=== PATIENT | male | born 1950 | race Caucasian/White ===

== ENCOUNTER 2019-11-12 06:02 | Inpatient (IN) ==
[2019-11-12] MEDS ORDERED: CeFAZolin Syr 2,000MG/20 ML 2,000 MG/20 ML SYRINGE IVPB ONE (06:25)
[2019-11-12] MEDS ORDERED: NiCARdipine 2.5 MG/10 ML Syringe IVPB ONE (06:56)
[2019-11-12] MEDS ORDERED: *HR* Midazolam HCl 5 MG/5 ML VIAL IVP ONE (06:59)
[2019-11-12] MEDS ORDERED: *HR* Propofol 200 MG/20 ML VIAL IVP ONE (06:59)
[2019-11-12] MEDS ORDERED: *HR* FentaNYL (PF) 1,000 MCG/20 ML VIAL ONE (06:59)
[2019-11-12] MEDS ORDERED: Famotidine 20 MG/2 ML VIAL ONE (07:01)
[2019-11-12] MEDS ORDERED: *HR* Rocuronium Bromide 50 MG/5 ML VIAL ONE ×3 (07:01→11:32)
[2019-11-12] MEDS ORDERED: *HR* PHENYLEPHRINE 1,000 MCG/10 ML SYRINGE IVP ONE (07:01)
[2019-11-12] MEDS ORDERED: Dexamethasone 4 MG/ML VIAL ONE (07:01)
[2019-11-12] MEDS ORDERED: Tranexamic Acid 1,000 MG/10 ML VIAL ONE (07:01)
[2019-11-12] MEDS ORDERED: Lidocaine 2% Syringe 100 MG/5 ML ONE (07:01)
[2019-11-12] MEDS: Aspirin 81 MG TAB.CHEW PO SCH ×2 (07:13→10:45)
[2019-11-12] MEDS ORDERED: *HR* Magnesium Sulfate 1 GM/2 ML VIAL ONE (07:15)
[2019-11-12] MEDS ORDERED: Heparin 15,000 UNIT in 0.9 % Sodium Chloride 500 ML IV ONE (07:45)
[2019-11-12] MEDS ORDERED: Dextrose 50 % in Water (Vial) 30 ML, Sodium Bicarbonate 20 MEQ, Lidocaine 1% 5 ML, Insu... TH ONE ×3 (07:45)
[2019-11-12] MEDS ORDERED: Dextrose 50 % in Water (Vial) 30 ML, Sodium Bicarbonate 20 MEQ, Potassium Chloride 15 M... TH ONE (07:45)
[2019-11-12] MEDS ORDERED: Norepinephrine 4 MG in 0.9 % Sodium Chloride 250 ML IVC PRN (07:45)
[2019-11-12] MEDS ORDERED: Insulin Human Regular 100 UNIT in 0.9 % Sodium Chloride 100 ML IV PRN (07:45)
[2019-11-12 08:17] LABS: ABG Base Excess -1 mEq/L (-2 to 3); ABG Chloride 110 mEq/L (98-107); ABG Glucose 117 mg/dL (60-95); ABG HCO3 26 mEq/L (21-27); ABG Ionized Calcium 1.09 mmol/L (1.15-1.35); ABG Oxygen Saturation 100 % (95-98); ABG PCO2 53 mmHg (35-45); ABG PO2 448 mmHg (85-104); ABG TCO2 28 mEq/L (20-26)
[2019-11-12] MEDS ORDERED: Chlorhexidine Rinse 15 ML MOUTHWASH MM SCH (09:00)
[2019-11-12 09:54] LABS: ABG Base Excess -2 mEq/L (-2 to 3); ABG Chloride 109 mEq/L (98-107); ABG Glucose 113 mg/dL (60-95); ABG HCO3 23 mEq/L (21-27); ABG Ionized Calcium 1.11 mmol/L (1.15-1.35); ABG Oxygen Saturation 100 % (95-98); ABG PCO2 40 mmHg (35-45); ABG PH 7.37 pH Units (7.32-7.45); ABG PO2 279 mmHg (85-104); ABG TCO2 24 mEq/L (20-26)
[2019-11-12 10:20] LABS: ABG Base Excess -1 mEq/L (-2 to 3); ABG Chloride 105 mEq/L (98-107); ABG Glucose 174 mg/dL (60-95); ABG HCO3 24 mEq/L (21-27); ABG Ionized Calcium 1.05 mmol/L (1.15-1.35); ABG Oxygen Saturation 100 % (95-98); ABG PCO2 35 mmHg (35-45); ABG PH 7.44 pH Units (7.32-7.45); ABG PO2 485 mmHg (85-104); ABG TCO2 25 mEq/L (20-26)
[2019-11-12] MEDS ORDERED: Calcium Gluconate 1,000 MG/10 ML VIAL ONE (10:22)
[2019-11-12] MEDS ORDERED: Protamine Sulfate 250 MG/25 ML VIAL IVP ONE (10:22)
[2019-11-12 10:42] LABS: ABG Base Excess 0 mEq/L (-2 to 3); ABG Chloride 105 mEq/L (98-107); ABG Glucose 135 mg/dL (60-95); ABG HCO3 25 mEq/L (21-27); ABG Ionized Calcium 1.09 mmol/L (1.15-1.35); ABG Oxygen Saturation 100 % (95-98); ABG PCO2 39 mmHg (35-45); ABG PH 7.41 pH Units (7.32-7.45); ABG PO2 332 mmHg (85-104); ABG TCO2 26 mEq/L (20-26)
[2019-11-12] MEDS ORDERED: Ondansetron 4 MG/2 ML VIAL IVP PRN (11:20)
[2019-11-12] MEDS ORDERED: Potassium Chloride 40 MEQ/200 ML BAG IVPB PRN (11:20)
[2019-11-12] MEDS ORDERED: *HR* Dextrose 50 % in Water (Vial) 50 ML VIAL IVP PRN (11:20)
[2019-11-12] MEDS ORDERED: Acetaminophen 650 MG RECTAL SUPP RC PRN (11:20)
[2019-11-12] MEDS ORDERED: Acetaminophen 325 MG TABLET PO PRN (11:20)
[2019-11-12] MEDS ORDERED: Albumin Human 5% 12.5 GM/250 ML IV.SOLN IVPB PRN (11:20)
[2019-11-12] MEDS: niCARdipine 20 MG/200 ML MLS IVC SCH ×4 (11:20→22:04)
[2019-11-12] MEDS ORDERED: Naloxone 0.4 MG/ML INJ IVP PRN (11:20)
[2019-11-12] MEDS ORDERED: Calcium Gluconate 1gm/50mL 1 GM/50 ML BAG IVPB PRN (11:20)
[2019-11-12] MEDS ORDERED: Insulin Regular, Human 100 UNIT/ML IV PRN (11:20)
[2019-11-12] MEDS: *HR* FentaNYL (PF) 100 MCG/2 ML VIAL IVP PRN ×2 (11:55→17:02)
[2019-11-12 12:24] LABS: ABG Base Excess -1 mEq/L (-2 to 3); ABG HCO3 25 mEq/L (21-27); ABG Oxygen Saturation 99 % (95-98); ABG PCO2 47 mmHg (35-45); ABG PH 7.34 pH Units (7.32-7.45); ABG PO2 152 mmHg (85-104); ABG TCO2 27 mEq/L (20-26); Blood Gas Modality AF; Blood Gas VT 500 cc
[2019-11-12 12:32] LABS: Red Cell Distribution Width 13.2 % (11.5-14.5)
[2019-11-12 12:34] LABS: Basophils # 0.1 K/mcL (0.0-0.2); Basophils % 0.4 %; Eosinophils # 0.1 K/mcL (0.0-0.6); Hematocrit 38.4 % (37.5-50.1); Hemoglobin 12.7 g/dL (12.9-16.9); Immature Granulocytes % 0.6 % (0-4); Immature Platelets 6.7 % (1.1-6.1); Lymphocytes # 1.2 K/mcL (0.6-4.6); Lymphocytes % 8.6 %; Mean Corpuscular HGB Conc 33.1 g/dL (31.6-35.5); Mean Corpuscular Hemoglobin 31.1 pg (28.0-33.3); Mean Corpuscular Volume 94.1 fL (83.0-100.0); Mean Platelet Volume 10.4 fL (9.4-12.4); Monocytes # 1.1 K/mcL (0.0-1.3); Monocytes % 7.9 %; Neutrophils # 11.3 K/mcL (1.6-8.9); Red Blood Count 4.08 M/mcL (4.19-5.50); Segmented Neutrophils % 81.5 %
[2019-11-12 12:40] LABS: INR 1.1
[2019-11-12 12:42] LABS: Activated Partial Thrombo Time 29.8 Seconds (26.0-36.0)
[2019-11-12 12:47] LABS: BUN/Creatinine Ratio 15 (6-26); Blood Urea Nitrogen 12 mg/dL (8-23); Carbon Dioxide 24 mEq/L (23-29); Chloride 111 mEq/L (98-107); Glucose 130 mg/dL (70-105); Magnesium 2.7 mg/dL (1.6-2.6); Osmolality,Calculated 292 (280-300); Potassium 4.1 mEq/L (3.5-5.1); Sodium 140 mEq/L (136-145); eGFR For African Americans > 60 (> 60); eGFR For Non-African Americans > 60 (> 60)
[2019-11-12] MEDS: Insulin Human Regular 100 UNIT in 0.9 % Sodium Chloride 100 ML IVC SCH ×2 (13:15→13:28)
[2019-11-12] MEDS: 0.9 % Sodium Chloride w KCl 20 MEQ/1,000 ML MLS IVC SCH (13:15)
[2019-11-12] MEDS: Norepinephrine 4 MG/254 ML IV.SOLN IVC SCH (13:15)
[2019-11-12] MEDS: Metoclopramide 10 MG/2 ML VIAL IVP SCH ×2 (13:16→17:03)
[2019-11-12] MEDS: Pantoprazole 40 MG VIAL IVP SCH (13:19)
[2019-11-12 13:33] LABS: Platelet Count 78 K/mcL (140-400)
[2019-11-12 13:35] LABS: White Blood Count 13.9 K/mcL (4.3-11.1)
[2019-11-12] MEDS: *HR* OxyCODONE/APAP 5/325 TABLET PO PRN ×2 (13:42→19:06)
[2019-11-12 14:59] LABS: ABG Base Excess 0 mEq/L (-2 to 3); ABG HCO3 25 mEq/L (21-27); ABG Oxygen Saturation 94 % (95-98); ABG PCO2 45 mmHg (35-45); ABG PH 7.36 pH Units (7.32-7.45); ABG PO2 75 mmHg (85-104); ABG TCO2 27 mEq/L (20-26); Blood Gas Modality CPAP/PS; Blood Gas Pressure Support 5 cm H2O
[2019-11-12] MEDS: CeFAZolin 2 GM/120 ML BAG IVPB SCH (15:04)
[2019-11-12 16:02] LABS: ABG Base Excess -2 mEq/L (-2 to 3); ABG Chloride 108 mEq/L (98-107); ABG Glucose 102 mg/dL (60-95); ABG HCO3 24 mEq/L (21-27); ABG Ionized Calcium 1.26 mmol/L (1.15-1.35); ABG Oxygen Saturation 100 % (95-98); ABG PCO2 44 mmHg (35-45); ABG PH 7.34 pH Units (7.32-7.45); ABG PO2 322 mmHg (85-104); ABG TCO2 25 mEq/L (20-26)
[2019-11-12] MEDS ORDERED: Albumin Human 25% 25 GM/100 ML IV.SOLN IVPB ONE (16:13)
[2019-11-12] MEDS ORDERED: Tranexamic Acid 1,000 MG/10 ML VIAL IR ONE (16:13)
[2019-11-12] MEDS ORDERED: Mannitol 25% vial 12.5 GM/50 ML VIAL IVPB ONE (16:13)
[2019-11-12] MEDS ORDERED: *HR* Heparin 10,000 UNIT/10 ML VIAL IR ONE (16:13)
[2019-11-12] MEDS ORDERED: Lidocaine 2% Syringe 100 MG/5 ML IVP ONE (16:13)
[2019-11-12] MEDS ORDERED: *HR* Magnesium Sulfate 2 GM/50 ML PIGGYBACK IVPB ONE (16:13)
[2019-11-12] MEDS ORDERED: *HR* Phenylephrine 10 MG/ML VIAL IVC ONE (16:13)
[2019-11-12] MEDS: Chlorhexidine Rinse 15 ML MOUTHWASH MM SCH (19:06)
[2019-11-13] MEDS: CeFAZolin 2 GM/120 ML BAG IVPB SCH (00:02)
[2019-11-13] MEDS: Metoclopramide 10 MG/2 ML VIAL IVP SCH ×5 (00:02→23:56)
[2019-11-13] MEDS: niCARdipine 20 MG/200 ML MLS IVC SCH ×3 (00:55→09:23)
[2019-11-13] MEDS: *HR* OxyCODONE/APAP 5/325 TABLET PO PRN ×5 (03:02→22:43)
[2019-11-13 04:21] LABS: Basophils % 0.1 %
[2019-11-13 04:22] LABS: Hematocrit 39.1 % (37.5-50.1); Hemoglobin 13.2 g/dL (12.9-16.9); Immature Granulocytes % 0.6 % (0-4); Immature Platelets 7.2 % (1.1-6.1); Lymphocytes # 1.7 K/mcL (0.6-4.6); Lymphocytes % 9.9 %; Mean Corpuscular HGB Conc 33.8 g/dL (31.6-35.5); Mean Corpuscular Hemoglobin 31.4 pg (28.0-33.3); Mean Corpuscular Volume 92.9 fL (83.0-100.0); Mean Platelet Volume 10.4 fL (9.4-12.4); Monocytes # 1.7 K/mcL (0.0-1.3); Monocytes % 9.9 %; Neutrophils # 13.9 K/mcL (1.6-8.9); Red Blood Count 4.21 M/mcL (4.19-5.50); Red Cell Distribution Width 13.3 % (11.5-14.5); Segmented Neutrophils % 79.5 %; White Blood Count 17.5 K/mcL (4.3-11.1)
[2019-11-13 04:25] LABS: Platelet Count 94 K/mcL (140-400)
[2019-11-13 04:26] LABS: INR 1.1
[2019-11-13 04:28] LABS: Activated Partial Thrombo Time 27.6 Seconds (26.0-36.0)
[2019-11-13 04:41] LABS: BUN/Creatinine Ratio 14 (6-26); Blood Urea Nitrogen 9 mg/dL (8-23); Calcium 7.9 mg/dL (8.6-10.3); Carbon Dioxide 22 mEq/L (23-29); Chloride 107 mEq/L (98-107); Glucose 95 mg/dL (70-105); Magnesium 1.8 mg/dL (1.6-2.6); Osmolality,Calculated 282 (280-300); Potassium 3.8 mEq/L (3.5-5.1); Sodium 137 mEq/L (136-145); eGFR For African Americans > 60 (> 60); eGFR For Non-African Americans > 60 (> 60)
[2019-11-13] MEDS ORDERED: Aspirin 81 MG TAB.CHEW PO ONE (06:00)
[2019-11-13] MEDS: *HR* FentaNYL (PF) 100 MCG/2 ML VIAL IVP PRN (06:04)
[2019-11-13] MEDS: Chlorhexidine Rinse 15 ML MOUTHWASH MM SCH ×2 (07:36→19:49)
[2019-11-13] MEDS: Pantoprazole 40 MG VIAL IVP SCH (07:38)
[2019-11-13] MEDS: 0.9 % Sodium Chloride w KCl 20 MEQ/1,000 ML MLS IVC SCH (08:27)
[2019-11-13] MEDS ORDERED: Aspirin Enteric Coated 81 MG Tablet PO SCH (09:00)
[2019-11-13] MEDS ORDERED: Furosemide 20 MG/2 ML VIAL IVP SCH (09:00)
[2019-11-13] MEDS: Norepinephrine 4 MG/254 ML IV.SOLN IVC SCH (09:23)
[2019-11-13] MEDS ORDERED: Dextrose Gel 15 GM/37.5 ML TUBE PO PRN ×2 (10:05)
[2019-11-13] MEDS ORDERED: D5% in Water 1,000 ML IVC PRN (10:05)
[2019-11-13] MEDS ORDERED: *HR* Dextrose 50 % in Water (Vial) 50 ML VIAL IVP PRN ×2 (10:05→10:13)
[2019-11-13] MEDS ORDERED: Ondansetron 4 MG/2 ML VIAL IVP PRN (10:13)
[2019-11-13] MEDS ORDERED: Insulin Human Regular 100 UNIT in 0.9 % Sodium Chloride 100 ML IVC SCH (10:13)
[2019-11-13] MEDS ORDERED: Acetaminophen 325 MG TABLET PO PRN (10:13)
[2019-11-13] MEDS ORDERED: Naloxone 0.4 MG/ML INJ IVP PRN (10:13)
[2019-11-13] MEDS ORDERED: Insulin Regular, Human 100 UNIT/ML IV PRN (10:13)
[2019-11-13] MEDS ORDERED: *HR* Heparin 5,000 UNIT/ML VIAL SQ SCH (10:15)
[2019-11-13] MEDS: lisinopriL 10 MG TABLET PO SCH (10:43)
[2019-11-13] MEDS ORDERED: Ondansetron ODT 4 MG TAB.RAPDIS SL PRN (10:59)
[2019-11-13] MEDS ORDERED: *HR* FentaNYL (PF) 100 MCG/2 ML VIAL IVP PRN (11:20)
[2019-11-13] MEDS ORDERED: Insulin LISPRO 300 UNITS/3 ML VIAL SQ SCH ×2 (11:30→21:00)
[2019-11-13] MEDS: *HR* Metformin 500 MG TABLET PO SCH (16:47)
[2019-11-13] MEDS: Furosemide 20 MG/2 ML VIAL IVP SCH (19:50)
[2019-11-14] MEDS: *HR* OxyCODONE/APAP 5/325 TABLET PO PRN ×3 (02:49→22:34)
[2019-11-14] MEDS: Metoclopramide 10 MG/2 ML VIAL IVP SCH ×4 (05:56→23:40)
[2019-11-14] MEDS: Furosemide 20 MG/2 ML VIAL IVP SCH ×2 (07:54→20:01)
[2019-11-14] MEDS: Aspirin Enteric Coated 81 MG Tablet PO SCH (07:54)
[2019-11-14] MEDS: lisinopriL 10 MG TABLET PO SCH (07:54)
[2019-11-14] MEDS: Chlorhexidine Rinse 15 ML MOUTHWASH MM SCH ×2 (07:54→20:01)
[2019-11-14] MEDS: *HR* Metformin 500 MG TABLET PO SCH ×2 (07:54→17:31)
[2019-11-14] MEDS: *HR* Glimepiride 2 MG TABLET PO SCH (07:55)
[2019-11-14] MEDS ORDERED: Pantoprazole 40 MG VIAL IVP SCH (09:00)
[2019-11-15] MEDS: Metoclopramide 10 MG/2 ML VIAL IVP SCH ×2 (05:38→12:12)
[2019-11-15] MEDS: Aspirin Enteric Coated 81 MG Tablet PO SCH (07:30)
[2019-11-15] MEDS: *HR* OxyCODONE/APAP 5/325 TABLET PO PRN (07:30)
[2019-11-15] MEDS: Chlorhexidine Rinse 15 ML MOUTHWASH MM SCH ×2 (07:31→21:32)
[2019-11-15] MEDS: lisinopriL 10 MG TABLET PO SCH (07:31)
[2019-11-15] MEDS: Furosemide 20 MG/2 ML VIAL IVP SCH ×2 (07:31→21:32)
[2019-11-15] MEDS: *HR* Metformin 500 MG TABLET PO SCH ×2 (07:31→16:51)
[2019-11-15] MEDS: *HR* Glimepiride 2 MG TABLET PO SCH (07:31)
[2019-11-15] MEDS: polyethylene glycoL 3350 17 GM POWD.PACK PO SCH (14:31)
[2019-11-16 01:35] LABS: Basophils % 0.3 %; Eosinophils # 0.3 K/mcL (0.0-0.6); Eosinophils % 2.4 %; Hematocrit 41.4 % (37.5-50.1); Hemoglobin 13.9 g/dL (12.9-16.9); Immature Granulocytes % 0.5 % (0-4); Lymphocytes # 1.9 K/mcL (0.6-4.6); Lymphocytes % 17.3 %; Mean Corpuscular HGB Conc 33.6 g/dL (31.6-35.5); Mean Corpuscular Volume 92.4 fL (83.0-100.0); Mean Platelet Volume 10.7 fL (9.4-12.4); Monocytes % 9.6 %; Neutrophils # 7.6 K/mcL (1.6-8.9); Platelet Count 151 K/mcL (140-400); Red Blood Count 4.48 M/mcL (4.19-5.50); Red Cell Distribution Width 12.7 % (11.5-14.5); Segmented Neutrophils % 69.9 %; White Blood Count 10.8 K/mcL (4.3-11.1)
[2019-11-16 01:55] LABS: BUN/Creatinine Ratio 19 (6-26); Blood Urea Nitrogen 14 mg/dL (8-23); Calcium 8.9 mg/dL (8.6-10.3); Carbon Dioxide 27 mEq/L (23-29); Chloride 100 mEq/L (98-107); Glucose 204 mg/dL (70-105); Osmolality,Calculated 290 (280-300); Potassium 3.5 mEq/L (3.5-5.1); Sodium 137 mEq/L (136-145); eGFR For African Americans > 60 (> 60); eGFR For Non-African Americans > 60 (> 60)
[2019-11-16 06:50] VITALS: BP 127/81
[2019-11-16] MEDS: *HR* Glimepiride 2 MG TABLET PO SCH (08:37)
[2019-11-16] MEDS: Aspirin Enteric Coated 81 MG Tablet PO SCH (08:38)
[2019-11-16] MEDS: *HR* Metformin 500 MG TABLET PO SCH (08:38)
[2019-11-16] MEDS: Chlorhexidine Rinse 15 ML MOUTHWASH MM SCH (08:38)
[2019-11-16] MEDS: lisinopriL 10 MG TABLET PO SCH (08:39)
[2019-11-16] MEDS: polyethylene glycoL 3350 17 GM POWD.PACK PO SCH (08:39)
== END 2019-11-16 10:23 | disposition home or self-care (01) | DRG 236 ==
LOC: SAMDAY 06:02 → ICNU 10:33 → 2NNU 11-14 18:19
PROVIDERS: ADMIT Thoracic Surgery (Cardiothoracic Vascular Surgery); ATTEND Thoracic Surgery (Cardiothoracic Vascular Surgery)